=== PATIENT | male | born 1945 | race Caucasian/White ===

== ENCOUNTER → 2016-08-25 | Outpatient (CLI) | payer OTHER ==
--- NOTE | 2016-08-25 13:55 | DX ---
Chest, PA and Lateral 25 August 2016 History: Cough. Shortness of breath. Comparison: July 2004. Findings: Heart size is within normal limits. Pulmonary vascularity appears normal. Minimal peribronc hial wall thickening is seen. The lungs are clear of acute consolidation. Degenerative change is seen in the thoracic spine. Impression: Question mild bronchitis. No other findings for acute cardiopulmonary abnormality.
== END ==
LOC: CIMAGING 12:27
PROVIDERS: ATTEND Internal Medicine
DX: R05 Cough (principal); R06.02 Shortness of breath
CPT/HCPCS: 71020-PO